=== PATIENT | female | born 1960 | race Hispanic/Latino ===

== ENCOUNTER 2017-03-26 19:57 | Emergency (ER) | payer OTHER ==
[2017-03-26] MEDS ORDERED: TYLENOL PO ONE (22:53)
[2017-03-26] MEDS ORDERED: TYLENOL ONE (22:53)
[2017-03-26 23:25] LABS: Basophils % (Auto) 1.1 % (0.0-1.8); Eosinophils % (Auto) 6.1 % (0.0-4.3); Mean Corpuscular HGB Conc 30 % (30-34); Mean Corpuscular Hemoglobin 27 pg (28-32); Mean Corpuscular Volume 88 fl (79-97); Platelet Count 241 K/mm3 (140-440); Red Blood Count 4.23 M/mm3 (3.65-5.03); Red Cell Distribution Width 16.4 % (13.2-15.2); White Blood Count 8.4 K/mm3 (4.5-11.0)
[2017-03-26 23:27] LABS: Hematocrit 37.4 % (30.3-42.9); Hemoglobin 11.4 gm/dl (10.1-14.3)
[2017-03-26 23:46] LABS: Calcium 8.8 mg/dL (8.4-10.2); Potassium 4.1 mmol/L (3.6-5.0)
[2017-03-27] MEDS ORDERED: BOOSTRIX IM ONE (05:46)
[2017-03-27] MEDS ORDERED: CLEOCIN PO ONE (05:46)
--- NOTE | 2017-03-27 05:51 | Emergency Department Report ---
ED General Adult HPI - General Chief complaint: Skin/Abscess/Foreign Body Stated complaint: RIGHT LEG PAIN/CHEST PAIN Time Seen by Provider: 03/27/17 04:58 Source: patient Mode of arrival: Ambulatory Limitations: No Limitations - History of Present Illness Initial comments: Patient present to the ED with her complaining of the right lower leg ulcer. She denies any fever or chills. -: Gradual Location: right, lower extremity Radiation: non-radiation Severity scale (0 -10): 2 Consistency: constant Improves with: none Worsens with: none Associated Symptoms: denies other symptoms Treatments Prior to Arrival: none - Related Data Home Medications Medication Instructions Recorded Confirmed Last Taken Atorvastatin [Lipitor] 40 mg PO QHS 10/20/15 03/07/17 03/06/17 Citalopram Hydrobromide [celeXA] 40 mg PO DAILY 10/20/15 03/07/17 03/06/17 Dabigatran [Pradaxa] 150 mg PO BID 10/20/15 03/07/17 03/06/17 Fluticasone (Nf) [Flovent 44 2 puff IH BID 10/20/15 03/07/17 10/20/15 MCG/PUFF HFA] Losartan [Cozaar] 50 mg PO QDAY 10/20/15 03/07/17 10/20/15 Nitroglycerin [Nitrostat] 0.4 mg SL Q5M PRN 10/20/15 03/07/17 10/20/15 Pantoprazole [Protonix TAB] 40 mg PO QDAY 10/20/15 03/07/17 03/06/17 Topiramate [Topamax] 25 mg PO QDAY 10/20/15 03/07/17 03/06/17 Furosemide [Lasix TAB] 40 mg PO AMHY 03/07/17 03/07/17 03/06/17 Insulin NPH/Regular [NovoLIN 70/30] 70 units SUB-Q BID 03/07/17 03/07/17 metFORMIN XR [Glucophage XR] 500 mg PO BID 03/07/17 03/07/17 Unknown Previous Rx's Medication Instructions Recorded Last Taken Type Potassium Chloride 10 meq PO QDAY #60 capsule.er 10/24/15 03/06/17 Rx Butalb/Acetamin/Caff 50-325-40 2 tab PO Q6HR PRN #30 tab 03/07/17 Unknown Rx [Fioricet] Ondansetron [Zofran ODT TAB] 8 mg PO Q8HR PRN #16 tab.rapdis 03/08/17 Unknown Rx Clindamycin HCl 300 mg PO QID 10 Days #40 capsule 03/27/17 Unknown Rx Mupirocin [Bactroban 2%] 1 applic TP TID #30 tube 03/27/17 Unknown Rx Allergies Allergy/AdvReac Type Severity Reaction Status Date / Time Penicillins Allergy Unknown Verified 03/08/14 15:26 ED Review of Systems ROS: Stated complaint: RIGHT LEG PAIN/CHEST PAIN Other details as noted in HPI Comment: All other systems reviewed and negative Constitutional: denies: chills, fever Eyes: denies: eye pain, eye discharge, vision change ENT: denies: ear pain, throat pain Respiratory: denies: cough, shortness of breath, wheezing Cardiovascular: denies: chest pain, palpitations Endocrine: no symptoms reported Gastrointestinal: denies: abdominal pain, nausea, diarrhea Genitourinary: denies: urgency, dysuria, discharge Musculoskeletal: other (RLE ulcer). denies: back pain, joint swelling, arthralgia Skin: denies: rash, lesions Neurological: denies: headache, weakness, paresthesias Psychiatric: denies: anxiety, depression Hematological/Lymphatic: denies: easy bleeding, easy bruising ED Past Medical Hx - Past Medical History Previous Medical History?: Yes Hx Hypertension: Yes (HIGH CHOL) Hx CVA: Yes (2011, 2015) Hx Heart Attack/AMI: Yes (2015) Hx Diabetes: Yes Hx Deep Vein Thrombosis: Yes (BILAT LEGS 2009) Hx Renal Disease: No Hx Headaches / Migraines: Yes Hx Psychiatric Treatment: Yes (depression) Hx Asthma: No Hx COPD: No Hx HIV: No Additional medical history: Tetanus status up-to-date - Surgical History Past Surgical History?: Yes Hx Coronary Stent: Yes (2011 X1) Hx Open Heart Surgery: Yes (CABG 2009/PTCA WITH 1 STENT 2011, 3 stents 2015) Additional Surgical History: Hysterectomy - Social History Smoking Status: Never Smoker Substance Use Type: None - Medications Home Medications: Home Medications Medication Instructions Recorded Confirmed Last Taken Type Atorvastatin [Lipitor] 40 mg PO QHS 10/20/15 03/07/1717 History Citalopram Hydrobromide [celeXA] 40 mg PO DAILY 10/20/15 03/07/17 03/06/17 History Dabigatran [Pradaxa] 150 mg PO BID 10/20/15 03/07/17 03/06/17 History Fluticasone (Nf) [Flovent 44 2 puff IH BID 10/20/15 03/07/17 10/20/15 History MCG/PUFF HFA] Losartan [Cozaar] 50 mg PO QDAY 10/20/15 03/07/17 10/20/15 History Nitroglycerin [Nitrostat] 0.4 mg SL Q5M PRN 10/20/15 03/07/17 10/20/15 History Pantoprazole [Protonix TAB] 40 mg PO QDAY 10/20/15 03/07/17 03/06/17 History Topiramate [Topamax] 25 mg PO QDAY 10/20/15 03/07/17 03/06/17 History Potassium Chloride 10 meq PO QDAY #60 capsule.er 10/24/15 03/07/17 03/06/17 Rx Butalb/Acetamin/Caff 50-325-40 2 tab PO Q6HR PRN #30 tab 03/07/17 Unknown Rx [Fioricet] Furosemide [Lasix TAB] 40 mg PO AMHY 03/07/17 03/07/17 03/06/17 History Insulin NPH/Regular [NovoLIN 70/30] 70 units SUB-Q BID 03/07/17 03/07/17 History metFORMIN XR [Glucophage XR] 500 mg PO BID 03/07/17 03/07/17 Unknown History Ondansetron [Zofran ODT TAB] 8 mg PO Q8HR PRN #16 tab.rapdis 03/08/17 Unknown Rx Clindamycin HCl 300 mg PO QID 10 Days #40 capsule 03/27/17 Unknown Rx Mupirocin [Bactroban 2%] 1 applic TP TID #30 tube 03/27/17 Unknown Rx ED Physical Exam - General Limitations: No Limitations General appearance: alert, in no apparent distress - Head Head exam: Present: atraumatic, normocephalic - Eye Eye exam: Present: normal appearance - ENT ENT exam: Present: mucous membranes moist - Neck Neck exam: Present: normal inspection - Respiratory Respiratory exam: Present: normal lung sounds bilaterally. Absent: respiratory distress - Cardiovascular Cardiovascular Exam: Present: regular rate, normal rhythm. Absent: systolic murmur, diastolic murmur, rubs, gallop - GI/Abdominal GI/Abdominal exam: Present: soft, normal bowel sounds - Extremities Exam Extremities exam: Present: normal inspection - Back Exam Back exam: Present: normal inspection - Neurological Exam Neurological exam: Present: alert, oriented X3 - Psychiatric Psychiatric exam: Present: normal affect, normal mood - Skin Skin exam: Present: warm, dry, intact, normal color, other (small less than 0.5 cm superficial ulceration of the right lower leg. No redness or discharge.). Absent: rash ED Course Vital Signs 03/26/17 22:46 Temperature 97.8 F Pulse Rate 58 L Respiratory 16 Rate Blood Pressure 148/70 [Right] O2 Sat by Pulse 99 Oximetry ED Medical Decision Making - Lab Data Result diagrams: 03/26/17 22:56 03/26/17 22:56 - Differential Diagnosis superficial ulcer to the right leg. Critical care attestation.: If time is entered above; I have spent that time in minutes in the direct care of this critically ill patient, excluding procedure time. ED Disposition Clinical Impression: Ulcer of right lower leg Qualifiers: Non-pressure ulcer stage: limited to breakdown of skin Qualified Code(s): L97.911 - Non-pressure chronic ulcer of unspecified part of right lower leg limited to breakdown of skin Disposition: DC-01 TO HOME OR SELFCARE Is pt being admited?: No Does the pt Need Aspirin: No Condition: Stable Instructions: Chronic Wound Care (ED) Additional Instructions: Please follow up with your primary care doctor on Friday morning. Return to the emergency room if your condition worsens. Prescriptions: Clindamycin HCl 300 mg PO QID 10 Days #40 capsule Mupirocin [Bactroban 2%] 1 applic TP TID #30 tube Referrals: MAGAN CHASE MD [Primary Care Provider] - 3-5 Days
[2017-03-27 06:34] VITALS: BP 149/72
== END 2017-03-27 06:58 | disposition home or self-care (01) ==
LOC: ED 19:57
DX: L97.911 Non-pressure chronic ulcer of unspecified part of right lower leg limited to breakdown of skin (principal); I10 Essential (primary) hypertension; I25.2 Old myocardial infarction; E11.9 Type 2 diabetes mellitus without complications
CPT/HCPCS: 36415; 80048; 82805; 83880; 85025; 90471; 90715; 93005; 93010

== ENCOUNTER 2017-07-22 15:39 | Emergency (ER) | payer SELFPAY ==
[2017-07-22] MEDS ORDERED: TYLENOL PO ONE (16:41)
--- NOTE | 2017-07-22 16:42 | Emergency Department Report ---
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 She setting neck back and occipital pain question of right hip pain no loss of consciousness no chest pain no palpitations. Patient takes pradaxa for dvt/ has ivc fiiler., also hx of cabg and stents but no cp today, no sob , here for eval slip and fall , doesn't think she had syncope, c/o neck back and occipital pain MD Complaint: fall -: Sudden Fall From: standing When Fall Occurred: 4-6 hours [employer]AM[employer]TER Fall Witnessed: yes, by family Place Fall Occurred: home Loss of Consciousness: none Prolonged Down Time?: no Symptoms Prior to Fall: other (slip and fall no dizziness no chest pain no palpitations no focal neuro complaints) Location: head, neck, back, other (hip r) Severity: mild, moderate Severity scale (0 -10): 4 Quality: burning, sharp Associated Symptoms: denies: numbness, weakness, chest paint, shortness of breath, abdominal pain, hematuria, unable to walk, lightheaded, vertigo, confusion - Related Data Home Medications Medication Instructions Recorded Confirmed Last Taken Atorvastatin [Lipitor] 40 mg PO QHS 10/20/15 03/07/17 03/06/17 Citalopram Hydrobromide [celeXA] 40 mg PO DAILY 10/20/15 03/07/17 03/06/17 Dabigatran [Pradaxa] 150 mg PO BID 10/20/15 03/07/17 03/06/17 Fluticasone (Nf) [Flovent 44 2 puff IH BID 10/20/15 03/07/17 10/20/15 MCG/PUFF HFA] Losartan [Cozaar] 50 mg PO QDAY 10/20/15 03/07/17 10/20/15 Nitroglycerin [Nitrostat] 0.4 mg SL Q5M PRN 10/20/15 03/07/17 10/20/15 Pantoprazole [Protonix TAB] 40 mg PO QDAY 10/20/15 03/07/17 03/06/17 Topiramate [Topamax] 25 mg PO QDAY 10/20/15 03/07/17 03/06/17 Furosemide [Lasix TAB] 40 mg PO AMHY 03/07/17 03/07/17 03/06/17 Insulin NPH/Regular [NovoLIN 70/30] 70 units SUB-Q BID 03/07/17 03/07/17 metFORMIN XR [Glucophage XR] 500 mg PO BID 03/07/17 03/07/17 Unknown Previous Rx's Medication Instructions Recorded Last Taken Type Potassium Chloride 10 meq PO QDAY #60 capsule.er 10/24/15 03/06/17 Rx Butalb/Acetamin/Caff 50-325-40 2 tab PO Q6HR PRN #30 tab 03/07/17 Unknown Rx [Fioricet] Ondansetron [Zofran ODT TAB] 8 mg PO Q8HR PRN #16 tab.rapdis 03/08/17 Unknown Rx Clindamycin HCl 300 mg PO QID 10 Days #40 capsule 03/27/17 Unknown Rx Mupirocin [Bactroban 2%] 1 applic TP TID #30 tube 03/27/17 Unknown Rx Allergies Allergy/AdvReac Type Severity Reaction Status Date / Time Penicillins Allergy Unknown Verified 03/08/14 15:26 ED Review of Systems ROS: Stated complaint: FALL Other details as noted in HPI Comment: All other systems reviewed and negative Constitutional: denies: diaphoresis, fever, malaise, weakness Eyes: denies: eye discharge, vision change ENT: denies: dental pain, hearing loss, epistaxis Respiratory: denies: shortness of breath, SOB with exertion, SOB at rest, stridor, wheezing Cardiovascular: denies: chest pain, palpitations, dyspnea on exertion, orthopnea , edema, syncope, paroxysmal nocturnal dyspnea Gastrointestinal: denies: abdominal pain, nausea, vomiting, constipation, hematemesis, melena, hematochezia Neurological: headache. denies: weakness, numbness, paresthesias, abnormal gait , vertigo Hematological/Lymphatic: denies: easy bleeding, easy bruising ED Past Medical Hx - Past Medical History Previous Medical History?: Yes Hx Hypertension: Yes (HIGH CHOL) Hx CVA: Yes (2011, 2015) Hx Heart Attack/AMI: Yes (2016) Hx Diabetes: Yes Hx Deep Vein Thrombosis: Yes (BILAT LEGS 2009) Hx Renal Disease: No Hx Headaches / Migraines: Yes Hx Psychiatric Treatment: Yes (depression) Hx Asthma: No Hx COPD: No Hx HIV: No Additional medical history: Tetanus status up-to-date - Surgical History Past Surgical History?: Yes Hx Coronary Stent: Yes (2011 X1) Hx Open Heart Surgery: Yes (CABG 2009/PTCA WITH 1 STENT 2011, 3 stents 2015) Additional Surgical History: Hysterectomy - Social History Smoking Status: Never Smoker Substance Use Type: Non Opiate Pain, Prescribed - Medications Home Medications: Home Medications Medication Instructions Recorded Confirmed Last Taken Type Atorvastatin [Lipitor] 40 mg PO QHS 10/20/15 03/07/17 03/06/17 History Citalopram Hydrobromide [celeXA] 40 mg PO DAILY 10/20/15 03/07/17 03/06/17 History Dabigatran [Pradaxa] 150 mg PO BID 10/20/15 03/07/17 03/06/17 History Fluticasone (Nf) [Flovent 44 2 puff IH BID 10/20/15 03/07/17 10/20/15 History MCG/PUFF HFA] Losartan [Cozaar] 50 mg PO QDAY 10/20/15 03/07/17 10/20/15 History Nitroglycerin [Nitrostat] 0.4 mg SL Q5M PRN 10/20/15 03/07/17 10/20/15 History Pantoprazole [Protonix TAB] 40 mg PO QDAY 10/20/15 03/07/17 03/06/17 History Topiramate [Topamax] 25 mg PO QDAY 10/20/15 03/07/17 03/06/17 History Potassium Chloride 10 meq PO QDAY #60 capsule.er 10/24/15 03/07/17 03/06/17 Rx Butalb/Acetamin/Caff 50-325-40 2 tab PO Q6HR PRN #30 tab 03/07/17 Unknown Rx [Fioricet] Furosemide [Lasix TAB] 40 mg PO AMHY 03/07/17 03/07/17 03/06/17 History Insulin NPH/Regular [NovoLIN 70/30] 70 units SUB-Q BID 03/07/17 03/07/17 History metFORMIN XR [Glucophage XR] 500 mg PO BID 03/07/17 03/07/17 Unknown History Ondansetron [Zofran ODT TAB] 8 mg PO Q8HR PRN #16 tab.rapdis 03/08/17 Unknown Rx Clindamycin HCl 300 mg PO QID 10 Days #40 capsule 03/27/17 Unknown Rx Mupirocin [Bactroban 2%] 1 applic TP TID #30 tube 03/27/17 Unknown Rx ED Physical Exam - General Limitations: No Limitations General appearance: alert, other (GCS 15) - Head Head exam: Present: other (hematoma occiput) - Eye Eye exam: Present: PERRL, EOMI. Absent: nystagmus Pupils: Present: normal accommodation - ENT ENT exam: Present: normal exam, normal orophraynx, other (no stridor or drooling good airway) - Neck Neck exam: Present: other (lateral neck tenderness placed in a collar) - Respiratory Respiratory exam: Present: normal lung sounds bilaterally. Absent: respiratory distress, wheezes, rales, rhonchi, stridor, chest wall tenderness, accessory muscle use, decreased breath sounds, prolonged expiratory - Cardiovascular Cardiovascular Exam: Present: regular rate, normal rhythm, normal heart sounds, other (pulses=). Absent: systolic murmur, diastolic murmur, rubs, gallop - GI/Abdominal GI/Abdominal exam: Present: soft. Absent: tenderness, guarding, rebound, rigid , mass, pulsatile mass - Extremities Exam Extremities exam: Present: normal inspection, normal capillary refill. Absent: tenderness, pedal edema, joint swelling, calf tenderness - Back Exam Back exam: Present: normal inspection, muscle spasm, paraspinal tenderness. Absent: CVA tenderness (R), CVA tenderness (L), vertebral tenderness - Neurological Exam Neurological exam: Present: alert, oriented X3, CN II-XII intact. Absent: motor sensory deficit - Skin Skin exam: Present: ecchymosis ED Course Vital Signs 07/22/17 07/22/17 07/22/17 15:46 17:59 18:15 Temperature 98.5 F Pulse Rate 78 77 Respiratory 18 16 16 Rate Blood Pressure 147/65 Blood Pressure 139/69 [Left] O2 Sat by Pulse 95 97 Oximetry 07/22/17 07/22/17 18:48 19:56 Temperature 98.3 F Pulse Rate 75 Respiratory 16 18 Rate Blood Pressure Blood Pressure 158/76 [Left] O2 Sat by Pulse 97 97 Oximetry ED Medical Decision Making - Lab Data Result diagrams: 07/22/17 16:40 07/22/17 16:40 - EKG Data -: EKG Interpreted by Me - EKG Data When compared to previous EKG there are: no significant change Interpretation: no acute changes - Radiology Data Radiology results: report reviewed CT brain shows contrecoup injury to the frontal petechial hemorrhage frontal lobe, C-spine cervical T and L show chronic change, patient does have elevated troponin. No STEMI is identified on EKG she does have previous history of cardiac disease. She was accepted by Dr. Herrera at [facility] who will evaluate for further evaluation of contrecoup frontal lobe contusion, and further evaluation of her medical issues. She is GCS 15 noairway problems identified no fractures identified she is stable for transfer, blood pressure was slightly elevated we did elect to give ntg paste to get it below 160 systolic. Critical care attestation.: If time is entered above; I have spent that time in minutes in the direct care of this critically ill patient, excluding procedure time. ED Disposition Clinical Impression: Contusion of frontal lobe, Elevated troponin Disposition: DC/TX-70 ANOTHER TYPE HLTHCARE Is pt being admited?: No Condition: Stable Referrals: PRIMARY CARE, [Primary Care Provider] - 3-5 Days Time of Disposition: 20:33
[2017-07-22 17:03] LABS: Basophils % (Auto) 0.5 % (0.0-1.8); Eosinophils # (Auto) 0.3 K/mm3 (0.0-0.4); Eosinophils % (Auto) 3.5 % (0.0-4.3); Hematocrit 34.7 % (30.3-42.9); Hemoglobin 11.1 gm/dl (10.1-14.3); Lymphocytes # (Auto) 1.7 K/mm3 (1.2-5.4); Lymphocytes % (Auto) 16.9 % (13.4-35.0); Mean Corpuscular HGB Conc 32 % (30-34); Mean Corpuscular Hemoglobin 29 pg (28-32); Mean Corpuscular Volume 91 fl (79-97); Monocytes # (Auto) 0.8 K/mm3 (0.0-0.8); Monocytes % (Auto) 8.5 % (0.0-7.3); Platelet Count 210 K/mm3 (140-440); Red Cell Distribution Width 16.3 % (13.2-15.2)
[2017-07-22 17:13] LABS: INR 1.32 (0.87-1.13)
[2017-07-22 17:14] LABS: Partial Thromboplastin Time 59.2 Sec. (24.2-36.6)
[2017-07-22 17:48] LABS: Chol/HDL Ratio 3.17 %
--- NOTE | 2017-07-22 18:10 | Cat Scan Report ---
FINAL REPORT PROCEDURE: CT HEAD/BRAIN WO CON TECHNIQUE: Computerized tomography of the head was performed without contrast material. HISTORY: Fell from wheelchair. COMPARISON: Prior CT scan of the brain and MRI of the brain both performed on 10/20/2015 FINDINGS: Brain: There is subtle increased density along the base of a few of the gyri in the right frontal lobe seen on axial 45 through 47 series 2. This was not seen on the prior scan. The appearance suggests small amount of petechial hemorrhage. No focal hematoma is visualized. No mass lesions or mass effect is identified. No abnormal extra-axial fluid collections or masses are seen. Small old lacunar infarcts visualized in the right and left basal ganglia and left thalamus. There is some decreased density seen in the periventricular white matter without mass effect. This is fairly symmetric and does not exhibit any mass effect consistent with gliosis probably on the basis of microvascular disease or white matter changes of aging. Ventricles: The ventricles, sulcal pattern and fissures are prominent consistent with atrophy. Bones: No evidence of acute fracture. Paranasal sinuses: clear Mastoid air cells: clear IMPRESSION: There is evidence of moderate atrophy and gliosis. Small old lacunar infarcts present right and left basal ganglia and left thalamus. Petechial hemorrhage suspected right frontal lobe as described. There is no focal hematoma or mass effect. No abnormal extra-axial hemorrhage visualized. Please see above image reference numbers. Critical value: These findings were discussed in detail with Dr. Montano on 07/22/2017 at 6:03 p.m. Eastern standard time.
--- NOTE | 2017-07-22 18:31 | Cat Scan Report ---
FINAL REPORT PROCEDURE: CT THORACIC SPINE WO CON TECHNIQUE: Computerized axial tomography of the thoracic spine was performed from C7 - L1 without contrast material. HISTORY: fall and pain COMPARISON: No prior studies are available for comparison. FINDINGS: No fracture or subluxation is visualized. Bone density appears normal. Posterior elements are intact. Moderate size Schmorl's node seen involving the inferior endplate of T11. Small anterior osteophytic spurs present in the lower half of the thoracic spine consistent with mild degenerative disc disease. No focal disc herniation or spinal stenosis is visualized. Portion of an inferior vena cava filter partially visualized in the upper abdomen. IMPRESSION: No fracture or subluxation is visualized. Mild degenerative disc disease is present as described.
--- NOTE | 2017-07-22 18:37 | Cat Scan Report ---
FINAL REPORT PROCEDURE: CT LUMBAR SPINE WO CON TECHNIQUE: Computerized axial tomography of the lumbar spine was performed from T12 to the sacrum without contrast material. HISTORY: fall and pain COMPARISON: No prior studies are available for comparison. FINDINGS: No fracture or subluxation is visualized. Posterior elements are intact. Height of the disc spaces well maintained. Small anterior osteophytic spurring present throughout the lumbar spine. Vacuum disc phenomena visualized at the T11-T12 level. There is no focal disc herniation or spinal stenosis. Mild diffuse posterior disc bulges are present at the L2-3 and the L3-4 level without focal disc herniation or spinal stenosis. There is a moderate diffuse posterior disc bulge at the L4-5 level, mild facet arthritis ligamentum flavum laxity. Spinal canal is narrowed secondary to these findings although probably still adequate. There is also mild diffuse posterior disc bulge at the L5-S1 level without focal disc herniation or spinal stenosis. Moderate facet arthritis visualized on the right at this level, mild changes on the left. Inferior vena cava filter noted at the L3 and L4 level. IMPRESSION: No fracture or subluxation is seen. There is facet arthritis and degenerative disc disease as described. Please see above comments. Spinal canal is narrowed secondary to a diffuse disc bulge facet arthritis and ligamentum flavum laxity at the L4-5 level although probably still adequate. Inferior vena cava filter incidentally noted as described.
--- NOTE | 2017-07-22 18:42 | Cat Scan Report ---
FINAL REPORT PROCEDURE: CT CERVICAL SPINE WO CON TECHNIQUE: Computerized tomography of the cervical spine was performed from the skull base to T1 without contrast material. HISTORY: fall and pain COMPARISON: No prior studies are available for comparison. FINDINGS: No fracture or subluxation is seen. The prevertebral soft tissues appear normal. Posterior elements are intact. At the C3-4 level there appears to be a moderate size central disc protrusion obscuring the anterior epidural space and resting on the anterior surface of the cervical cord without definite compression. The neural foramina appear widely patent. Minimal asymmetric disc bulge to the right of midline at C4-C5 without cord compression or spinal stenosis. There is anterior and posterior osteophytic spurring at C5-C6 level. Posteriorly this is asymmetric greater on the right than left overlying a disc bulge. The disc osteophyte complex obscures the anterior epidural space and appears to be resting on the cord without cord compression. The neural foramina appear adequate. Incidental note is made of sternotomy wires partially visualized in the chest. IMPRESSION: No fracture or subluxation is seen. Degenerative disc disease is present as described above. Please see above comments..
[2017-07-22] MEDS ORDERED: NITRO-BID 2% TP ONE (20:21)
[2017-07-22 20:52] VITALS: BP 169/69
--- NOTE | 2017-07-22 22:02 | XRay Report ---
FINAL REPORT PROCEDURE: Portable upright chest x-ray TECHNIQUE: Chest radiograph anteroposterior view. CPT 89370 HISTORY: low volt ekg COMPARISON: No prior studies are available for comparison. FINDINGS: Sternotomy wires are visualized. The heart is magnified due to projection and appears to be normal size. The pulmonary vasculature is not distended. Lungs are clear. No infiltrates masses effusions or pneumothorax identified. There appear to be several surgical clips overlying the left colin thorax. IMPRESSION: Prior thoracotomy. No evidence of acute cardiac or pulmonary process..
== END 2017-07-22 22:49 | disposition other institution (70) ==
LOC: ED 15:39
DX: S00.03XA Contusion of scalp, initial encounter (principal); R79.89 Other specified abnormal findings of blood chemistry; M54.2 Cervicalgia; M54.89 Other dorsalgia; M62.830 Muscle spasm of back; M25.551 Pain in right hip; I10 Essential (primary) hypertension; I25.2 Old myocardial infarction; E11.9 Type 2 diabetes mellitus without complications; G43.909 Migraine, unspecified, not intractable, without status migrainosus; F32.9 Major depressive disorder, single episode, unspecified; E78.00 Pure hypercholesterolemia, unspecified; Z86.718 Personal history of other venous thrombosis and embolism; Z95.1 Presence of aortocoronary bypass graft; Z90.710 Acquired absence of both cervix and uterus; Z88.0 Allergy status to penicillin; W01.0XXA Fall on same level from slipping, tripping and stumbling without subsequent striking against object, initial encounter; Y93.89 Activity, other specified; Y99.8 Other external cause status; Y92.009 Unspecified place in unspecified non-institutional (private) residence as the place of occurrence of the external cause
CPT/HCPCS: 36415; 70450; 71045; 72125; 72128; 72131; 80048; 80061; 84484; 85025; 85610; 85730; 93005; 93010

== ENCOUNTER 2019-03-11 12:19 | Day surgery (SDC) | payer MEDICARE, OTHER ==
--- NOTE | 2019-03-11 13:18 | Anesthesia Day of Surgery ---
Anesthesia Day of Surgery - Day of Surgery Patient Examined: Yes Patient H&P Reviewed: Yes Patient is NPO: Yes
--- NOTE | 2019-03-11 13:22 | Anesthesia Consultation ---
Anesthesia Consult and Med Hx Date of service: 03/11/19 - Airway Anesthetic Teeth Evaluation: Good ROM Head & Neck: Adequate Mental/Hyoid Distance: Adequate Mallampati Class: Class II Intubation Access Assessment: Probably Good - Pre-Operative Health Status ASA Pre-Surgery Classification: ASA4 Proposed Anesthetic Plan: MAC - Pulmonary Hx Smoking: No Hx Asthma: Yes COPD: No Hx Sleep Apnea: Yes - Cardiovascular System Hx Hypertension: Yes Hx Coronary Artery Disease: Yes (CABG 2009 PTCA 2011. Stents X 3) Hx Heart Attack/AMI: Yes (CHF) Hx Angina: No Hx Percutaneous Transluminal Coronary Angioplasty (PTCA): Yes Hx Peripheral Vascular Disease: (HX DVT, PVD) - Central Nervous System CVA: Yes (2011) Hx Psychiatric Problems: Yes - Gastrointestinal Hx Gastroesophageal Reflux Disease: No - Endocrine Hx Renal Disease: No Hx Insulin Dependent Diabetes: Yes (YD=827) - Hematic Hx Anemia: No (IVC Filter) - Other Systems Hx Cancer: No Hx Obesity: Yes
[2019-03-11] MEDS ORDERED: SODIUM CHLORIDE 0.9% 1000 ML 1,000 ML IV SCH (14:00)
[2019-03-11] MEDS ORDERED: PROPOFOL 200 MG/20 ML VIAL IV ONE ×2 (14:12→14:23)
[2019-03-11] MEDS ORDERED: LIDOCAINE 2% UROJECT 10 ML JELLY ONE (15:09)
[2019-03-11 16:02] VITALS: BP 137/78
--- NOTE | 2019-03-11 16:10 | Operative Report ---
Operative Report Operative Report: Procedure: Colonoscopy Hemorrhoidal Band Ligation Attending physician: Osvaldo Vasquez MD Director Of Database Marketing: Osvaldo Vasquez MD Indication: Patient is a 59-year-old female who presents for screening colonoscopy. She also has a history of rectal bleeding . A colonoscopy serves to evaluate patient so that treatment may be directed based on the findings. Consent: Informed consent was obtained after advising the patient and family regarding nature of this procedure, its indications, potential benefits as well as possible complications including but not limited to bleeding perforation and adverse reaction to medication, infection as well as other cardiopulmonary complications. An informed written and verbal consent was then obtained after due opportunity was provided for questions and answers. Monitoring: Patient was monitored continuously with pulse oximetry and electrocardiographic recordings as well as blood pressure recordings. Vital signs remained stable throughout this procedure with no untoward events. Preoperative assessment: Patient was assessed immediately prior to this procedure for capacity to tolerate monitored anesthesia care and moderate sedation as well as general anesthesia. Patient's ASA classification is 2, Mallampati class is 2, Hyomental distance is 3. Instrument: Olympus video colonoscope. [employer] video endoscope. Multiple band ligator: Speedband SuperView Super 7 (appiris) Medications: Propofol given intravenously in divided doses. For details please refer to anesthesia records. Description of procedure: Patient was placed in the left lateral decubitus position after achieving sedation, a digital rectal examination was performed following which the colonoscope was introduced into the anal verge and advanced to the cecum which was identified by the cecal valve, the appendiceal orifice, as well as by the cecal strap and direct transillumination. The colonoscope was subsequently withdrawn with careful inspection of all mucosal surfaces. Patient tolerated this procedure well and was subsequently taken to the recovery room. The following findings were noted. Findings: The colon to the cecum was normal. On the retroflex view at the anal verge, patient had prominent large friable large internal hemorrhoids. After completing the colonoscopic examination, the olympus video endoscope was preloaded with the multiple band ligator. It was then reintroduced into the rectum after using lidocaine gel to anesthetize the rectum. Following this, in a retroflexed view, multiple bands were applied over the internal hemorrhoids. In all, all 4 bands were applied due to size of internal hemorrhoids. All bands were applied above the dentate line. Patient tolerated the procedure well with no untoward events. Impression: Prominent friable Internal hemorrhoids, status post successful hemorrhoidal band ligation. Plan:Daily sitz baths. High-fiber diet. Patient to apply lidocaine ointment 5% per rectum every 6 hours as needed. Anusol HC suppositories per rectum every night. Patient to use stool softeners as needed. MiraLAX 17 g in 8 ounce glass of water has been prescribed. Tramadol 50 mg every 6 hours as needed for pain. Patient is scheduled for further outpatient follow-up. Patient to notify our office of any other procedure related complications.
--- NOTE | 2019-03-11 16:11 | Discharge Summary ---
Short Stay Discharge Plan Activity: advance as tolerated Weight Bearing Status: Weight Bear as Tolerated Diet: regular Additional Instructions: Post Sedation D/C Instructions When you return home you may resume your regular diet unless otherwise directed. -Go directly home from the hospital and rest quietly. You may resume normal activities tomorrow. -Do NOT drive, return to work, operate any machinery or make any important personal or business decisions today. -Do NOT drink any alcohol or take nerve or sleeping drugs. They add to the effects of the medicine still present in your body. Follow up with: MAGAN CHASE MD [Primary Care Provider] - 7 Days
[2019-03-11] MEDS ORDERED: SODIUM CHLORIDE P/F VIAL 10 ML 10 ML ONE (16:24)
[2019-03-11] MEDS ORDERED: ePHEDrine SULFATE 50 MG/1 ML INJ ONE (16:24)
[2019-03-11] MEDS ORDERED: fentaNYL 100 MCG/2 ML INJ ONE (16:43)
[2019-03-11] MEDS ORDERED: LACTATED RINGERS 1,000 ML ONE (16:51)
[2019-03-11] MEDS ORDERED: FUROSEMIDE 40 MG/4 ML INJ ONE ×2 (16:59)
[2019-03-11] MEDS ORDERED: LIDOCAINE MPF (2%) 20 MG/1 ML VIAL 5 ML ONE (17:00)
--- NOTE | 2019-03-12 08:26 | Post Anesthesia Evaluation ---
- Post Anesthesia Evaluation Patient Participated: Yes Airway Patent: Yes Stable Respiratory Function: Yes Nausea/Vomiting: No Temp > 96.8F: Yes Pain Manageable: Yes Adequeate Hydration: Yes Anesthesia Complications: No Block Receding Appropriately: Not Applicable Patient on Ventilator: No
== END 2019-03-11 12:20 | disposition home or self-care (01) ==
LOC: GIO 12:19
PROVIDERS: ATTEND Internal Medicine Gastroenterology
DX: K62.5 Hemorrhage of anus and rectum (principal); K62.89 Other specified diseases of anus and rectum; K64.8 Other hemorrhoids; G47.33 Obstructive sleep apnea (adult) (pediatric); I10 Essential (primary) hypertension; E78.5 Hyperlipidemia, unspecified; G43.109 Migraine with aura, not intractable, without status migrainosus; E11.51 Type 2 diabetes mellitus with diabetic peripheral angiopathy without gangrene; J45.909 Unspecified asthma, uncomplicated; G47.30 Sleep apnea, unspecified; I25.10 Atherosclerotic heart disease of native coronary artery without angina pectoris; E78.00 Pure hypercholesterolemia, unspecified; E66.9 Obesity, unspecified; F32.9 Major depressive disorder, single episode, unspecified; Z88.0 Allergy status to penicillin; Z79.84 Long term (current) use of oral hypoglycemic drugs; Z79.4 Long term (current) use of insulin; Z79.899 Other long term (current) drug therapy; Z95.1 Presence of aortocoronary bypass graft; Z86.718 Personal history of other venous thrombosis and embolism; Z68.41 Body mass index [BMI] 40.0-44.9, adult; Z91.81 History of falling; Z98.890 Other specified postprocedural states; Z86.73 Personal history of transient ischemic attack (TIA), and cerebral infarction without residual deficits
CPT/HCPCS: 45398; 82962; J1940; J2704; J7030; J7120; J3010